=== PATIENT | female | born 1980 | race Caucasian/White ===

== ENCOUNTER 2018-09-07 19:41 | Emergency (ER) | payer MEDICAID ==
[~2018-09-07] VITALS: Ht 175.3 cm; Wt 93.0 kg
[2018-09-07] MEDS ORDERED: MORPHINE SULFATE 4 MG/ML CPJ (NOT FOR IM USE) IV STA (22:37)
[2018-09-07] MEDS ORDERED: ONDANSETRON HCL 4MG/2ML INJ IV STA (22:37)
[2018-09-07] MEDS ORDERED: KETOROLAC 30MG/ML VIAL IV STA (22:37)
[2018-09-07] MEDS ORDERED: SODIUM CHLORIDE 0.9% 1,000 ML IV ONE (22:37)
[2018-09-07 23:40] LABS: BASOPHILS % 0.2 % (0.0-2.0); EOSINOPHILS % 0.1 % (0.0-5.0); HEMATOCRIT. 36.9 % (36.0-48.0); HEMOGLOBIN. 12.4 g/dL (12.0-16.0); LYMPHOCYTES % 10.7 % (20.0-50.0); MEAN CORPUSCULAR HEMOGLOBIN 28.6 pg (28.0-32.0); MEAN CORPUSCULAR VOLUME 84.9 fL (81.0-99.0); MEAN PLATELET VOLUME 7.6 fl (7.4-10.4); PLATELET 274 x1000/uL (130-400); RED BLOOD CELL COUNT 4.35 mill/uL (4.2-5.4); RED CELL DISTRIBUTION WIDTH 12.4 % (11.6-14.6)
[2018-09-07 23:46] LABS: CHLORIDE 109 mEq/L (98-107); PROTHROMBIN TIME 9.9 sec (9.1-11.1)
[2018-09-08] LABS: HCG SCREEN NEGATIVE
[2018-09-08 00:05] LABS: CLARITY URINE CLEAR (CLEAR); COLOR URINE YELLOW (YELLOW); KETONES URINE NEGATIVE (NEGATIVE); LEUKOCYTE ESTERASE URINE TRACE (NEGATIVE); NITRITE URINE NEGATIVE (NEGATIVE); OCCULT BLOOD URINE NEGATIVE (NEGATIVE); PROTEIN URINE NEGATIVE (NEGATIVE); SPECIFIC GRAVITY URINE 1.011 (1.005-1.030); UROBILINOGEN URINE 0.2 E.U./dL (0.2-1.0)
[2018-09-08 03:18] VITALS: BP 128/88
== END 2018-09-08 03:38 | disposition home or self-care (01) ==
LOC: ER 19:41
DX: K42.9 Umbilical hernia without obstruction or gangrene (principal); K80.20 Calculus of gallbladder without cholecystitis without obstruction; M47.897 Other spondylosis, lumbosacral region
CPT/HCPCS: 36415; 74176; 80053; 81003; 81025; 83690; 84484; 84703; 85025; 85610; 99284; J7030